=== PATIENT | male | born 1975 | race Caucasian/White ===

== ENCOUNTER 2016-11-27 12:11 | Emergency (ER) | payer OTHER ==
[~2016-11-27 12:11] MED LIST: AMBIEN10 MG PO; APTENSIO XR15 MG PO; CELEXA40 MG PO; CITRATE OF MAG296 ML PO; DESYREL100 MG PO; DIAZEPAM5 MG PO; EFFEXOR75 MG PO; FLEXERIL10 MG PO; LAMOTRIGINE200 MG PO; MOTRIN600 MG PO; NOHOMEMEDS; PRAZOSIN HCL1 MG PO; TRAMADOL HCL50 MG PO; ULTRAM50 MG PO
[2016-11-27 12:34] LABS: BASOPHIL COUNT 0.1 K/uL (0-0.1); EOSINOPHIL (%) 1.8 % (0-5); EOSINOPHIL COUNT 0.1 K/uL (0-0.3); HEMATOCRIT 46.3 % (38.0-50.0); IMMATURE GRANULOCYTE (%) 0.3 % (0.0-0.7); INSTRUMENT ABS NEUTROPHIL CT 3.8 K/uL; LYMPHOCYTE COUNT 1.6 K/uL (1.0-2.8); MCH 29.8 PG (29.0-34.0); MCHC 33.9 G/DL (30.0-36.0); MONOCYTE (%) 10.3 % (3-12); MONOCYTE COUNT 0.6 K/uL (0-0.8); NEUTROPHIL (%) 60.9 % (45-76); NEUTROPHIL COUNT 3.8 K/uL (1.8-6.4); RBC DIS.WIDTH-CV 12.8 % (11.8-14.6); RBC DIS.WIDTH-SD 41.6 % (39-53); RED BLOOD COUNT 5.26 M/uL (4.00-5.50); WHITE BLOOD COUNT 6.2 K/uL (4.1-10.2)
[2016-11-27 12:47] LABS: AMYLASE 62 IU/L (1-118); CHLORIDE 107 mEq/L (99-109); POTASSIUM 5.3 mEq/L (3.7-5.4); SODIUM 137 mEq/L (136-147)
[2016-11-27 12:49] LABS: GLUCOSE 105 mg/dL (70-99)
[2016-11-27 12:50] LABS: ANION GAP 11 MEQ/L (2-14)
[2016-11-27 12:52] LABS: SERUM ETHYL ALCOHOL < 10 mg/dL
[2016-11-27 12:53] LABS: GFR ESTIMATE (CALCULATED) > 59 mL/min/
[2016-11-27 12:54] LABS: UREA NITROGEN (BUN) 13 mg/dL (9-23)
[2016-11-27 12:56] LABS: LIPASE 18 U/L (1.0-51.0)
[2016-11-27 13:08] LABS: MEAN PLAT.VOLUME 12.6 uM^3 (9.0-12.4); PLAT.SUFFICIENCY ADEQUATE; PLATELET COUNT 139 K/uL (156-360)
[2016-11-27 13:33] LABS: CREATINE KINASE 115 IU/L (1-294)
[2016-11-27 13:39] LABS: ADD MIUA? YES; BILIRUBIN NEGATIVE; BLOOD NEGATIVE; COLOR YELLOW ((YELLOW)); GLUCOSE (STRIP) NEGATIVE; KETONES NEGATIVE; LEUKOCYTES NEGATIVE; NITRITE NEGATIVE; PROTEIN (STRIP) NEGATIVE; SPECIFIC GRAVITY 1.019 (1.000-1.030); UROBILINOGEN 0.2 MG/DL (0.2-1.0)
[2016-11-27 13:46] LABS: BACTERIA NONE SEEN /HPF; EPITHELIAL CELLS NONE SEEN /HPF; MUCUS TRACE /LPF; RED BLOOD CELLS 0-5 /HPF (0-5); UCUL ADDED? NO; WHITE BLOOD CELLS 0-5 /HPF (0-5)
[2016-11-27 13:48] LABS: AMPHETAMINE NEGATIVE (500 ng/mL); BARBITURATES NEGATIVE (200 ng/mL); BENZODIAZEPINES NEGATIVE (150 ng/mL); COCAINE NEGATIVE (150 ng/mL); INTERNAL CONTROLS VALID? YES; METHADONE NEGATIVE (200 ng/mL); METHAMPHETAMINE NEGATIVE (500 ng/mL); OPIATES (MORPHINE) NEGATIVE (100 ng/mL); OXYCODONE NEGATIVE (100 ng/mL); PHENCYCLIDINE NEGATIVE (25 ng/mL); PROPOXYPHENE NEGATIVE (300 ng/mL); THC CANNABINOIDS NEGATIVE (50 ng/mL); TRICYCLIC ANTIDEPRESSANTS NEGATIVE (300 ng/mL)
[2016-11-27] MEDS ORDERED: ULTRAM50 MG PO (14:11)
== END 2016-11-27 14:38 | disposition home or self-care (01) ==
LOC: TRA 12:11
DX: S77.11XA Crushing injury of right thigh, initial encounter (principal); S87.81XA Crushing injury of right lower leg, initial encounter; W23.0XXA Caught, crushed, jammed, or pinched between moving objects, initial encounter
CPT/HCPCS: 73552; 73590; 80048; 81003; 82150; 82550; 83690; 85025; 86850; 86900; 86901; 99281; 99284; G0480; J3010

== ENCOUNTER 2017-03-07 14:59 | Emergency (ER) | payer OTHER ==
[2017-03-07 15:27] LABS: BASOPHIL (%) 0.8 % (0-1); BASOPHIL COUNT 0.1 K/uL (0-0.1); EOSINOPHIL (%) 1.5 % (0-5); EOSINOPHIL COUNT 0.1 K/uL (0-0.3); HEMATOCRIT 44.1 % (38.0-50.0); HEMOGLOBIN 15.2 G/DL (12.5-16.6); IMMATURE GRANULOCYTE (%) 0.3 % (0.0-0.7); LYMPHOCYTE (%) 24.2 % (15-42); LYMPHOCYTE COUNT 2.1 K/uL (1.0-2.8); MCH 30.2 PG (29.0-34.0); MCHC 34.5 G/DL (30.0-36.0); MCV 87.7 FL (86-99); MONOCYTE (%) 8.4 % (3-12); MONOCYTE COUNT 0.7 K/uL (0-0.8); NEUTROPHIL (%) 64.8 % (45-76); NEUTROPHIL COUNT 5.6 K/uL (1.8-6.4); PLATELET COUNT 177 K/uL (156-360); RBC DIS.WIDTH-CV 12.8 % (11.8-14.6); RBC DIS.WIDTH-SD 40.8 % (39-53); RED BLOOD COUNT 5.03 M/uL (4.00-5.50); WHITE BLOOD COUNT 8.6 K/uL (4.1-10.2)
[2017-03-07 16:08] LABS: AMYLASE 74 IU/L (1-118); CHLORIDE 106 mEq/L (99-109); POTASSIUM 4.1 mEq/L (3.7-5.4); SODIUM 139 mEq/L (136-147)
[2017-03-07 16:10] LABS: GLUCOSE 100 mg/dL (70-99)
[2017-03-07 16:13] LABS: SERUM ETHYL ALCOHOL < 10 mg/dL
[2017-03-07 16:14] LABS: GFR ESTIMATE (CALCULATED) > 59 mL/min/ (58.99-99999)
[2017-03-07 16:15] LABS: UREA NITROGEN (BUN) 11 mg/dL (9-23)
[2017-03-07 16:17] LABS: LIPASE 18 U/L (1.0-51.0)
[2017-03-07 17:48] LABS: APPEARANCE CLEAR ((CLEAR)); BILIRUBIN NEGATIVE; BLOOD NEGATIVE; COLOR YELLOW ((YELLOW)); GLUCOSE (STRIP) NEGATIVE; KETONES NEGATIVE; LEUKOCYTES NEGATIVE; NITRITE NEGATIVE; PROTEIN (STRIP) NEGATIVE; UCUL ADDED? NO; UROBILINOGEN 0.2 MG/DL (0.2-1.0)
[2017-03-07 18:04] LABS: AMPHETAMINE NEGATIVE (500 ng/mL); BARBITURATES NEGATIVE (200 ng/mL); BENZODIAZEPINES PRESUMPTIVE POSITIVE (150 ng/mL); BUPRENORPHINE NEGATIVE (10 ng/mL); COCAINE NEGATIVE (150 ng/mL); METHADONE NEGATIVE (200 ng/mL); METHAMPHETAMINE NEGATIVE (500 ng/mL); OPIATES (MORPHINE) NEGATIVE (100 ng/mL); OXYCODONE NEGATIVE (100 ng/mL); PHENCYCLIDINE NEGATIVE (25 ng/mL); PROPOXYPHENE NEGATIVE (300 ng/mL); THC CANNABINOIDS NEGATIVE (50 ng/mL); TRICYCLIC ANTIDEPRESSANTS NEGATIVE (300 ng/mL)
[2017-03-07] MEDS ORDERED: ULTRAM50 MG PO (19:15)
[2017-03-07 19:18] LABS: BENZODIAZEPINES, URINE SCREEN POSITIVE (200 ng/mL)
== END 2017-03-07 19:35 | disposition home or self-care (01) ==
LOC: TRA 14:59
PROVIDERS: Emergency Medicine
DX: S39.012A Strain of muscle, fascia and tendon of lower back, initial encounter (principal); S80.01XA Contusion of right knee, initial encounter; V89.2XXA Person injured in unspecified motor-vehicle accident, traffic, initial encounter; M25.551 Pain in right hip; M54.2 Cervicalgia
CPT/HCPCS: 70450; 71045; 72110; 72125; 72170; 73564; 80048; 81003; 82150; 83690; 84999; 85025; 86850; 86900; 86901; 99281; 99285; G0480